=== PATIENT | male | born 1980 | race African-American/Black ===

== ENCOUNTER 2021-09-04 17:21 | Emergency (ER) | payer OTHER ==
[~2021-09-04] VITALS: Ht 185.4 cm; Wt 81.8 kg
[~2021-09-04 17:21] MED LIST: ASPI81 PO; PERCT PO
[2021-09-04 17:40] VITALS: BP 160/80
== END 2021-09-04 19:01 | disposition home or self-care (01) ==
LOC: EMS 17:21
DX: Z48.01 Encounter for change or removal of surgical wound dressing (principal); Z98.890 Other specified postprocedural states
CPT/HCPCS: 99281; Z7502

== ENCOUNTER 2023-11-16 12:19 | Emergency (ER) | payer OTHER ==
[~2023-11-16] VITALS: Ht 185.4 cm; Wt 81.8 kg
[2023-11-16 12:33] VITALS: BP 139/90; PULSE 66; RESP 16; TEMP 97.9
[2023-11-16] MEDS: BACITRACIN 0.9 GM PACKET OINTMENT TP ONE (14:44)
[2023-11-16] MEDS: PERTUSS(ACELL),DIPH,TET/PF 0.5 ML SYRINGE [ADULT] IM. ONE (14:45)
[2023-11-16] MEDS: LIDOCAINE 1% 10 ML VIAL SQ ONE (14:45)
[2023-11-16] MEDS ORDERED: CEPH-558 PO (16:55)
[2023-11-16] MEDS ORDERED: BACI28.410 TP (16:55)
[2023-11-16] MEDS ORDERED: IBUP-1554 PO (16:55)
== END 2023-11-16 17:24 | disposition home or self-care (01) ==
LOC: EMS 12:23
DX: S01.511A Laceration without foreign body of lip, initial encounter (principal); Y04.8XXA Assault by other bodily force, initial encounter; Y93.89 Activity, other specified; Y92.89 Other specified places as the place of occurrence of the external cause; Y99.8 Other external cause status
CPT/HCPCS: 99283; 90715; 90471; 12013; J3490

== ENCOUNTER 2023-12-09 12:52 | Emergency (ER) | payer OTHER ==
[~2023-12-09] VITALS: Ht 180.3 cm; Wt 84.0 kg
[~2023-12-09 12:52] MED LIST changes: -ASPI81 PO; +BACI28.410 TP; +CEPH-558 PO; +IBUP-1554 PO; -PERCT PO
[2023-12-09 12:56] VITALS: BP 113/72; PULSE 82; RESP 16; TEMP 99; O2SAT 98
== END 2023-12-09 13:49 | disposition home or self-care (01) ==
LOC: EMS 12:52
DX: S01.511D Laceration without foreign body of lip, subsequent encounter (principal); Z98.890 Other specified postprocedural states; Z48.02 Encounter for removal of sutures; W19.XXXD Unspecified fall, subsequent encounter
CPT/HCPCS: 99281; Z7502